=== PATIENT | male | born 1995 | race Asian ===

== ENCOUNTER 2017-01-23 04:05 | Emergency (ER) | payer OTHER ==
[~2017-01-23] VITALS: Ht 182.9 cm; Wt 94.0 kg
[~2017-01-23 04:05] MED LIST: 00186-0370-20 IH; AMOXICILLIN 50500 MG PO; AMOXICILLIN 8751 TAB PO; CIPRO 500MG TA500 MG PO; DEXILANT30 MG PO; FLEXERIL 1010 MG/TAB PO; LEVAQUIN 5500 MG/TA1 PO; MEDROL 4MG DOSPA4 MG PO; NORCO 325 MG-51 TAB PO; PEPCID 20MG TAB20 MG PO; PERCOCET 325 MG1 TA2 PO; PREDNISONE20 MG PO; PRIL40 PO; PROMETHAZINE12.5 M5 PO; REGLAN 10MG10 MG/TAB PO; ROXICODONE 55 MG/TAB PO; TUSS PO; VENTOLIN0.09 MG IH; VOLTAREN 75 DR75 MG PO; ZITHROMAX Z PA250 MG PO; ZOFRAN ODT4 MG PO; [UNRECOGNIZED DRUG - OTHER] PO
[2017-01-23 04:08] VITALS: TEMP 98.7
[2017-01-23] MEDS ORDERED: NAPROXEN 3375 MG/TAB PO (04:54)
[2017-01-23 05:18] VITALS: BP 100/55; PULSE 74
== END 2017-01-23 05:22 | disposition home or self-care (01) ==
LOC: COL.ER 04:05
DX: R07.9 Chest pain, unspecified (principal); R09.1 Pleurisy

== ENCOUNTER 2017-01-29 04:07 | Emergency (ER) | payer OTHER ==
[~2017-01-29] VITALS: Ht 182.9 cm; Wt 90.9 kg
[~2017-01-29 04:07] MED LIST changes: +NAPROXEN 3375 MG/TAB PO
[2017-01-29 04:11] VITALS: BP 112/77; TEMP 98.3
[2017-01-29] MEDS ORDERED: MOBIC 7.5MG7.5 MG PO (04:34)
[2017-01-29] MEDS ORDERED: FLEXERIL 1010 MG/TAB PO (04:34)
[2017-01-29 05:10] VITALS: PULSE 73
== END 2017-01-29 05:12 | disposition home or self-care (01) ==
LOC: COL.ER 04:07
DX: M54.5 Low back pain (principal)
CPT/HCPCS: J1885

== ENCOUNTER 2017-02-18 00:41 | Emergency (ER) | payer OTHER ==
[~2017-02-18] VITALS: Ht 182.9 cm; Wt 93.2 kg
[~2017-02-18 00:41] MED LIST changes: +MOBIC 7.5MG7.5 MG PO
[2017-02-18 00:43] VITALS: TEMP 99
[2017-02-18 01:20] LABS: BASO # 0.1 (0.0-0.2); BASO % 0.8 % (0.0-2.0); EOS # 0.3 (0.0-0.7); EOS % 3.3 % (0-4.0); GRAN # 2.5 (1.4-6.5); GRAN % 32.6 % (42.2-75.2); HEMATOCRIT 42.4 % (42.0-52.0); HEMOGLOBIN 14.2 g/dl (13.5-18.0); LYMPH # 4.2 (1.2-3.4); LYMPH % 54.4 % (20.0-51.0); MEAN CELL VOLUME 88 fl (80.0-100.0); MEAN CORPUSCULAR HEMOGLOBIN 30 pg (27.0-31.0); MEAN CORPUSCULAR HGB CONC 34 g/dl (33.0-37.0); MEAN PLATELET VOLUME 10.3 fl (7.4-10.4); MONO # 0.7 (0.1-0.6); MONO % 8.8 % (1.7-9.3); PLATELET COUNT 252 K/mm3 (130-400); REDCELL DISTRIBUTION WIDTH-CV 13.2 % (11.5-14.5); WHITE BLOOD COUNT 7.6 K/mm3 (4.8-10.8)
[2017-02-18 01:23] LABS: PH 5 (5-8); SQUAMOUS EPITHELIAL None Seen /hpf; URINE APPEARANCE Clear; URINE BACTERIA None Seen /hpf; URINE BILIRUBIN Negative (NEGATIVE); URINE BLOOD Negative (NEGATIVE); URINE COLOR Yellow; URINE GLUCOSE Negative (NEGATIVE); URINE KETONE Negative (NEGATIVE); URINE RBC 0-2 /hpf; URINE UROBILINOGEN Negative (NEGATIVE); URINE WBC 0-2 /hpf
[2017-02-18 01:29] LABS: ADJUSTED CALCIUM 9.2 mg/dL (8.4-10.2); ALBUMIN 4.8 gm/dL (3.5-5.0); BILIRUBIN,TOTAL 0.6 mg/dL (0.0-1.0); CALCIUM 9.8 mg/dL (8.4-10.2); CREATININE, serum 0.88 mg/dL (0.66-1.25); POTASSIUM 3.6 mmol/L (3.4-5.0)
[2017-02-18 03:30] VITALS: BP 101/80; PULSE 61
== END 2017-02-18 03:39 | disposition home or self-care (01) ==
LOC: COL.ER 00:41
PROVIDERS: Emergency Medicine
DX: R10.13 Epigastric pain (principal); R11.10 Vomiting, unspecified
CPT/HCPCS: J1200; J1885; J2550; J7030

== ENCOUNTER 2017-07-13 22:52 | Emergency (ER) | payer OTHER ==
[~2017-07-13] VITALS: Ht 182.9 cm; Wt 106.8 kg
[2017-07-13 23:03] VITALS: BP 127/70; TEMP 99.1
[2017-07-13] MEDS ORDERED: 00186-0372-20 IH (23:06)
[2017-07-13] MEDS ORDERED: PREDNISONE20 MG PO (23:41)
[2017-07-14 01:12] VITALS: PULSE 79
== END 2017-07-14 01:12 | disposition home or self-care (01) ==
LOC: COL.ER 22:52
DX: J45.901 Unspecified asthma with (acute) exacerbation (principal); J06.9 Acute upper respiratory infection, unspecified; R11.10 Vomiting, unspecified
CPT/HCPCS: J7512

== ENCOUNTER 2017-12-14 14:12 | Emergency (ER) | payer OTHER ==
[~2017-12-14] VITALS: Ht 180.3 cm; Wt 106.8 kg
[~2017-12-14 14:12] MED LIST changes: +00186-0372-20 IH; +ADVIL200 MG PO
[2017-12-14 14:24] VITALS: BP 115/56; TEMP 99
[2017-12-14] MEDS ORDERED: ZOFRAN ODT4 MG PO (18:45)
[2017-12-14 19:05] VITALS: PULSE 72
== END 2017-12-14 19:06 | disposition home or self-care (01) ==
LOC: COL.ER 14:12
DX: J11.1 Influenza due to unidentified influenza virus with other respiratory manifestations (principal); J45.909 Unspecified asthma, uncomplicated; F17.210 Nicotine dependence, cigarettes, uncomplicated

== ENCOUNTER 2017-12-15 23:40 | Emergency (ER) | payer OTHER ==
[~2017-12-15] VITALS: Ht 180.3 cm; Wt 109.1 kg
[2017-12-15 23:51] VITALS: BP 130/62; TEMP 99.2
[2017-12-16 01:37] LABS: BASO # 0.1 (0.0-0.2); BASO % 0.8 % (0.0-2.0); EOS # 0.2 (0.0-0.7); EOS % 2.5 % (0-4.0); GRAN % 50.6 % (42.2-75.2); HEMATOCRIT 45.7 % (42.0-52.0); LYMPH # 1.9 (1.2-3.4); LYMPH % 32.3 % (20.0-51.0); MEAN CELL VOLUME 89 fl (80.0-100.0); MEAN CORPUSCULAR HEMOGLOBIN 29 pg (27.0-31.0); MEAN CORPUSCULAR HGB CONC 33 g/dl (33.0-37.0); MEAN PLATELET VOLUME 10.4 fl (7.4-10.4); MONO # 0.8 (0.1-0.6); MONO % 13.5 % (1.7-9.3); PLATELET COUNT 229 K/mm3 (130-400); RED BLOOD COUNT 5.11 M/mm3 (4.20-5.60); REDCELL DISTRIBUTION WIDTH-CV 13.2 % (11.5-14.5)
[2017-12-16 01:47] LABS: ALBUMIN 4.8 gm/dL (3.5-5.0); BILIRUBIN,TOTAL 0.7 mg/dL (0.0-1.0); CALCIUM 9.9 mg/dL (8.4-10.2); CREATININE, serum 0.95 mg/dL (0.66-1.25); TOTAL PROTEIN 8.1 gm/dL (6.4-8.2)
[2017-12-16] MEDS ORDERED: PHENERGAN 25 TA25 MG PO (02:05)
[2017-12-16] MEDS ORDERED: PROTONIX 40MG T40 MG PO (02:05)
[2017-12-16] MEDS ORDERED: CARAFATE 1GM1 G PO (02:05)
[2017-12-16 04:53] VITALS: PULSE 80
== END 2017-12-16 04:53 | disposition home or self-care (01) ==
LOC: COL.ER 23:40
PROVIDERS: Emergency Medicine
DX: K29.70 Gastritis, unspecified, without bleeding (principal); K27.9 Peptic ulcer, site unspecified, unspecified as acute or chronic, without hemorrhage or perforation; J45.909 Unspecified asthma, uncomplicated; F17.210 Nicotine dependence, cigarettes, uncomplicated
CPT/HCPCS: C9113; J1200; J1885; J2550; J7030

== ENCOUNTER → 2018-01-14 | Outpatient (CLI) | payer OTHER ==
[~2018-01-14] MED LIST changes: +CARAFATE 1GM1 G PO; +PHENERGAN 25 TA25 MG PO; +PROTONIX 40MG T40 MG PO
== END ==
LOC: COL.RAD 07:22
DX: R10.13 Epigastric pain (principal); R11.0 Nausea
CPT/HCPCS: A9541

== ENCOUNTER 2018-05-09 04:57 | Emergency (ER) | payer OTHER ==
[~2018-05-09] VITALS: Ht 182.9 cm; Wt 100.0 kg
[2018-05-09 05:01] VITALS: TEMP 98.1
[2018-05-09 05:30] LABS: BASO # 0.1 (0.0-0.2); BASO % 0.6 % (0.0-2.0); EOS # 0.3 (0.0-0.7); EOS % 2.5 % (0-4.0); GRAN # 5.1 (1.4-6.5); GRAN % 50.9 % (42.2-75.2); HEMATOCRIT 40.6 % (42.0-52.0); HEMOGLOBIN 13.7 g/dl (13.5-18.0); LYMPH # 3.9 (1.2-3.4); MEAN CELL VOLUME 91 fl (80.0-100.0); MEAN CORPUSCULAR HEMOGLOBIN 31 pg (27.0-31.0); MEAN CORPUSCULAR HGB CONC 34 g/dl (33.0-37.0); MEAN PLATELET VOLUME 10.2 fl (7.4-10.4); MONO # 0.7 (0.1-0.6); MONO % 6.7 % (1.7-9.3); PLATELET COUNT 222 K/mm3 (130-400); RED BLOOD COUNT 4.44 M/mm3 (4.20-5.60)
[2018-05-09 05:42] LABS: ALANINE AMINOTRANSFERASE 41 U/L (21-72); ALBUMIN 4.1 gm/dL (3.5-5.0); ALKALINE PHOSPHATASE 107 U/L (50-136); ANION GAP 11 mmol/L (7-16); AST,SGOT 28 U/L (15-37); BILIRUBIN,TOTAL 0.4 mg/dL (0.0-1.0); BLOOD UREA NITROGEN 22 mg/dL (9-20); C-REACTIVE PROTEIN 0.7 mg/dL (0.0-0.9); CALCIUM 9.6 mg/dL (8.4-10.2); CARBON DIOXIDE 25 mmol/L (22-30); CHLORIDE 103 mmol/L (98-107); CREATININE, serum 1.14 mg/dL (0.66-1.25); GLUCOSE 118 mg/dL (74-106); LIPASE 109 U/L (23-300); POTASSIUM 3.4 mmol/L (3.4-5.0); SODIUM 140 mmol/L (137-145); TOTAL PROTEIN 7.7 gm/dL (6.4-8.2)
[2018-05-09 05:44] LABS: ALCOHOL(ethanol),MEDICAL < 10 mg/dL
[2018-05-09] MEDS ORDERED: PRIL40 PO (05:49)
[2018-05-09] MEDS ORDERED: NITROSTAT0.3 MG SL (05:49)
[2018-05-09] MEDS ORDERED: SUDAFED30 MG PO (05:50)
[2018-05-09] MEDS ORDERED: ASPIRIN 81M81 MG/TA2 PO (05:50)
[2018-05-09 05:51] LABS: TROPONIN-I < 0.012 ng/mL (0.000-0.034)
[2018-05-09] MEDS ORDERED: NITROSTAT0.4 MG/TAB SL (06:41)
[2018-05-09] MEDS ORDERED: PRILOTC (06:42)
[2018-05-09 06:49] VITALS: BP 103/65; PULSE 86
== END 2018-05-09 07:12 | disposition home or self-care (01) ==
LOC: COL.ER 04:57
PROVIDERS: Emergency Medicine
DX: R55 Syncope and collapse (principal); R11.2 Nausea with vomiting, unspecified; J45.909 Unspecified asthma, uncomplicated; K21.9 Gastro-esophageal reflux disease without esophagitis; F17.210 Nicotine dependence, cigarettes, uncomplicated; Z79.82 Long term (current) use of aspirin
CPT/HCPCS: C9113; J2405; J7030

== ENCOUNTER 2018-06-18 00:10 | Emergency (ER) | payer OTHER ==
[~2018-06-18] VITALS: Ht 182.9 cm; Wt 97.7 kg
[~2018-06-18 00:10] MED LIST changes: +ASPIRIN 81M81 MG/TA2 PO; +NITROSTAT0.3 MG SL; +NITROSTAT0.4 MG/TAB SL; +PRILOTC; +SUDAFED30 MG PO
[2018-06-18 00:13] VITALS: BP 109/66; TEMP 98.3
[2018-06-18] MEDS ORDERED: 00186-0372-20 IH (00:37)
[2018-06-18 01:30] VITALS: PULSE 94
== END 2018-06-18 01:30 | disposition home or self-care (01) ==
LOC: COL.ER 00:10
DX: S90.31XA Contusion of right foot, initial encounter (principal); J45.909 Unspecified asthma, uncomplicated; F17.210 Nicotine dependence, cigarettes, uncomplicated; W22.8XXA Striking against or struck by other objects, initial encounter; Y92.009 Unspecified place in unspecified non-institutional (private) residence as the place of occurrence of the external cause

== ENCOUNTER 2018-07-04 01:32 | Emergency (ER) | payer OTHER ==
[~2018-07-04] VITALS: Ht 182.9 cm; Wt 90.9 kg
[2018-07-04 01:35] VITALS: TEMP 99
[2018-07-04 02:11] LABS: BASO # 0.1 (0.0-0.2); BASO % 0.7 % (0.0-2.0); EOS # 0.2 (0.0-0.7); EOS % 2.7 % (0-4.0); GRAN % 59.1 % (42.2-75.2); HEMATOCRIT 41.1 % (42.0-52.0); HEMOGLOBIN 13.7 g/dl (13.5-18.0); LYMPH # 2.3 (1.2-3.4); LYMPH % 26.7 % (20.0-51.0); MEAN CELL VOLUME 90 fl (80.0-100.0); MEAN CORPUSCULAR HEMOGLOBIN 30 pg (27.0-31.0); MEAN CORPUSCULAR HGB CONC 33 g/dl (33.0-37.0); MEAN PLATELET VOLUME 10.4 fl (7.4-10.4); MONO # 0.9 (0.1-0.6); MONO % 10.7 % (1.7-9.3); PLATELET COUNT 237 K/mm3 (130-400); RED BLOOD COUNT 4.58 M/mm3 (4.20-5.60); REDCELL DISTRIBUTION WIDTH-CV 13.4 % (11.5-14.5)
[2018-07-04 02:20] LABS: COLLECTION METHOD CLEAN CATCH
[2018-07-04 02:22] LABS: ALANINE AMINOTRANSFERASE 35 U/L (21-72); ALBUMIN 4.4 gm/dL (3.5-5.0); ALKALINE PHOSPHATASE 94 U/L (50-136); ANION GAP 14 mmol/L (7-16); AST,SGOT 23 U/L (15-37); BILIRUBIN,TOTAL 0.5 mg/dL (0.0-1.0); BLOOD UREA NITROGEN 13 mg/dL (9-20); CALCIUM 9.4 mg/dL (8.4-10.2); CARBON DIOXIDE 19 mmol/L (22-30); CHLORIDE 107 mmol/L (98-107); CREATINE KINASE 84 U/L (55-170); CREATININE, serum 0.86 mg/dL (0.66-1.25); GLUCOSE 91 mg/dL (74-106); LIPASE 97 U/L (23-300); POTASSIUM 3.7 mmol/L (3.4-5.0); SODIUM 140 mmol/L (137-145); TOTAL PROTEIN 7.8 gm/dL (6.4-8.2)
[2018-07-04 02:33] LABS: TROPONIN-I < 0.012 ng/mL (0.000-0.034)
[2018-07-04 02:34] LABS: MUCOUS Present /lpf; SQUAMOUS EPITHELIAL None Seen /hpf; URINE BACTERIA None Seen /hpf; URINE RBC 0-2 /hpf
[2018-07-04 02:35] LABS: PH 6 (5-8); URINE APPEARANCE Clear; URINE BILIRUBIN Negative (NEGATIVE); URINE BLOOD Negative (NEGATIVE); URINE COLOR Yellow; URINE GLUCOSE Negative (NEGATIVE); URINE KETONE Negative (NEGATIVE); URINE LEUKOCYTE ESTERASE Negative (NEGATIVE); URINE NITRATE Negative (NEGATIVE); URINE PROTEIN(semi-quant) Negative (NEGATIVE); URINE UROBILINOGEN Negative (NEGATIVE)
[2018-07-04] MEDS ORDERED: PROTONIX 40MG T40 MG PO (04:06)
[2018-07-04] MEDS ORDERED: ZOFRAN ODT4 MG PO (04:06)
[2018-07-04] MEDS ORDERED: CARAFATE 1GM1 G PO (04:06)
[2018-07-04 04:55] VITALS: BP 112/57; PULSE 90
[2018-07-05] MEDS ORDERED: PROAIR HFA0.09 MG/AC IH (02:19)
[2018-07-05] MEDS ORDERED: TESSALON P100 MG/CAP PO (02:20)
== END 2018-07-04 04:55 | disposition home or self-care (01) ==
LOC: COL.ER 01:32
PROVIDERS: Emergency Medicine
DX: K27.9 Peptic ulcer, site unspecified, unspecified as acute or chronic, without hemorrhage or perforation (principal); J45.909 Unspecified asthma, uncomplicated; F17.210 Nicotine dependence, cigarettes, uncomplicated; F12.10 Cannabis abuse, uncomplicated
CPT/HCPCS: C9113; J2405; J7030

== ENCOUNTER 2018-07-04 22:28 | Emergency (ER) | payer OTHER ==
[~2018-07-04] VITALS: Ht 182.9 cm; Wt 90.9 kg
[2018-07-04 22:37] VITALS: BP 120/70; PULSE 101; TEMP 99.5
[2018-07-05] MEDS ORDERED: PROAIR HFA0.09 MG/AC IH (02:19)
[2018-07-05] MEDS ORDERED: TESSALON P100 MG/CAP PO (02:20)
== END 2018-07-05 03:35 | disposition home or self-care (01) ==
LOC: COL.ER 22:28
DX: J06.9 Acute upper respiratory infection, unspecified (principal); J45.909 Unspecified asthma, uncomplicated; R11.0 Nausea; I10 Essential (primary) hypertension; F17.210 Nicotine dependence, cigarettes, uncomplicated
CPT/HCPCS: A4614; J2550

== ENCOUNTER → 2018-07-14 | Outpatient (CLI) | payer OTHER ==
[~2018-07-14] MED LIST changes: +PROAIR HFA0.09 MG/AC IH; +TESSALON P100 MG/CAP PO
== END ==
LOC: COL.RAD 08:20
DX: K25.7 Chronic gastric ulcer without hemorrhage or perforation (principal); K82.8 Other specified diseases of gallbladder
CPT/HCPCS: A9537

== ENCOUNTER 2018-07-20 08:28 | Day surgery (SDC) | payer OTHER ==
[~2018-07-20] VITALS: Ht 182.9 cm; Wt 91.6 kg
[2018-07-20] VITALS (8 sets, daily range): BP systolic 102–118; BP diastolic 48–73; PULSE 66–91; TEMP 98.3
[2018-07-20] MEDS ORDERED: PAMELOR 25MG25 MG PO (08:48)
[2018-07-20] MEDS ORDERED: PRILOSEC 20MG20 MG PO (08:49)
[2018-07-20] MEDS ORDERED: TESSALON P100 MG/CAP PO (08:49)
[2018-07-20] MEDS ORDERED: CARAFATE 1GM1 G PO (08:51)
[2018-07-20] MEDS ORDERED: MOTRIN 600600 MG/TAB PO (11:32)
[2018-07-20] MEDS ORDERED: COLACE 100100 MG/CAP PO (11:32)
[2018-07-20] MEDS ORDERED: PERCOCET 325 MG1 TA2 PO (11:32)
[2018-07-20] MEDS ORDERED: ZOFRAN ODT4 MG PO (11:33)
== END 2018-07-20 17:11 | disposition home or self-care (01) ==
LOC: SDCO 08:28
DX: K81.1 Chronic cholecystitis (principal); J45.909 Unspecified asthma, uncomplicated; K25.7 Chronic gastric ulcer without hemorrhage or perforation; E78.00 Pure hypercholesterolemia, unspecified; K29.30 Chronic superficial gastritis without bleeding; Z87.891 Personal history of nicotine dependence; Z82.49 Family history of ischemic heart disease and other diseases of the circulatory system
CPT/HCPCS: J0690; J1100; J1885; J2405; J2704; J2710; J3010; J7120; Q9967

== ENCOUNTER 2018-07-25 18:27 | Emergency (ER) | payer OTHER ==
[~2018-07-25] VITALS: Ht 182.9 cm; Wt 90.5 kg
[~2018-07-25 18:27] MED LIST changes: +COLACE 100100 MG/CAP PO; +MOTRIN 600600 MG/TAB PO; +PAMELOR 25MG25 MG PO; +PRILOSEC 20MG20 MG PO
[2018-07-25 18:31] VITALS: TEMP 98.8
[2018-07-25 19:23] LABS: BASO # 0.1 (0.0-0.2); BASO % 0.6 % (0.0-2.0); EOS # 0.3 (0.0-0.7); EOS % 3.9 % (0-4.0); GRAN # 3.9 (1.4-6.5); GRAN % 49.7 % (42.2-75.2); HEMATOCRIT 44.7 % (42.0-52.0); HEMOGLOBIN 15.2 g/dl (13.5-18.0); LYMPH # 2.7 (1.2-3.4); LYMPH % 35.2 % (20.0-51.0); MEAN CELL VOLUME 88 fl (80.0-100.0); MEAN CORPUSCULAR HEMOGLOBIN 30 pg (27.0-31.0); MEAN CORPUSCULAR HGB CONC 34 g/dl (33.0-37.0); MONO # 0.8 (0.1-0.6); MONO % 10.5 % (1.7-9.3); PLATELET COUNT 249 K/mm3 (130-400); RED BLOOD COUNT 5.07 M/mm3 (4.20-5.60)
[2018-07-25 19:40] LABS: ALBUMIN 4.3 gm/dL (3.5-5.0); BILIRUBIN,TOTAL 0.5 mg/dL (0.0-1.0); CALCIUM 9.5 mg/dL (8.4-10.2); CREATININE, serum 0.83 mg/dL (0.66-1.25); PHOSPHOROUS 4.8 mg/dL (2.5-4.5); TOTAL PROTEIN 7.8 gm/dL (6.4-8.2)
[2018-07-25 20:58] LABS: COLLECTION METHOD CLEAN CATCH
[2018-07-25 21:03] LABS: MUCOUS Present /lpf; PH 6 (5-8); SQUAMOUS EPITHELIAL None Seen /hpf; URINE APPEARANCE Clear; URINE BACTERIA None Seen /hpf; URINE BILIRUBIN Negative (NEGATIVE); URINE BLOOD Negative (NEGATIVE); URINE COLOR Yellow; URINE GLUCOSE Negative (NEGATIVE); URINE KETONE Negative (NEGATIVE); URINE LEUKOCYTE ESTERASE Negative (NEGATIVE); URINE NITRATE Negative (NEGATIVE); URINE PROTEIN(semi-quant) Negative (NEGATIVE); URINE RBC 0-2 /hpf
[2018-07-25 21:14] VITALS: BP 121/69; PULSE 81
== END 2018-07-25 21:14 | disposition home or self-care (01) ==
LOC: COL.ER 18:27
PROVIDERS: Emergency Medicine
DX: K59.00 Constipation, unspecified (principal)
CPT/HCPCS: J1170; J2405; J7030

== ENCOUNTER 2018-11-20 03:35 | Emergency (ER) | payer OTHER ==
[~2018-11-20] VITALS: Ht 182.9 cm; Wt 90.9 kg
[2018-11-20 03:38] VITALS: TEMP 97.7
[2018-11-20 04:38] LABS: BASO # 0.1 (0.0-0.2); BASO % 0.6 % (0.0-2.0); EOS # 0.2 (0.0-0.7); EOS % 2.4 % (0-4.0); HEMATOCRIT 41.1 % (42.0-52.0); HEMOGLOBIN 13.6 g/dl (13.5-18.0); LYMPH # 4.2 (1.2-3.4); LYMPH % 51.2 % (20.0-51.0); MEAN CELL VOLUME 90 fl (80.0-100.0); MEAN CORPUSCULAR HEMOGLOBIN 30 pg (27.0-31.0); MEAN CORPUSCULAR HGB CONC 33 g/dl (33.0-37.0); MONO # 0.7 (0.1-0.6); MONO % 8.6 % (1.7-9.3); PLATELET COUNT 259 K/mm3 (130-400); RED BLOOD COUNT 4.57 M/mm3 (4.20-5.60); REDCELL DISTRIBUTION WIDTH-CV 13.5 % (11.5-14.5)
[2018-11-20 04:47] LABS: ALANINE AMINOTRANSFERASE 26 U/L (21-72); ALBUMIN 4.2 gm/dL (3.5-5.0); ALKALINE PHOSPHATASE 109 U/L (50-136); ANION GAP 9 mmol/L (7-16); AST,SGOT 22 U/L (15-37); BILIRUBIN,TOTAL 0.4 mg/dL (0.0-1.0); BLOOD UREA NITROGEN 13 mg/dL (9-20); CALCIUM 9.6 mg/dL (8.4-10.2); CARBON DIOXIDE 26 mmol/L (22-30); CHLORIDE 106 mmol/L (98-107); CREATININE, serum 0.83 mg/dL (0.66-1.25); GLUCOSE 98 mg/dL (74-106); SODIUM 141 mmol/L (137-145); TOTAL PROTEIN 7.3 gm/dL (6.4-8.2)
[2018-11-20 04:59] LABS: TROPONIN-I < 0.012 ng/mL (0.000-0.034)
[2018-11-20] MEDS ORDERED: FLEXERIL 1010 MG/TAB PO (05:57)
[2018-11-20 06:12] VITALS: BP 102/66; PULSE 68
== END 2018-11-20 06:14 | disposition home or self-care (01) ==
LOC: COL.ER 03:35
PROVIDERS: Emergency Medicine
DX: R07.81 Pleurodynia (principal); J45.909 Unspecified asthma, uncomplicated; E78.5 Hyperlipidemia, unspecified; F32.9 Major depressive disorder, single episode, unspecified; F17.290 Nicotine dependence, other tobacco product, uncomplicated; Z90.49 Acquired absence of other specified parts of digestive tract
CPT/HCPCS: J1885

== ENCOUNTER 2019-01-02 18:27 | Emergency (ER) | payer OTHER | END 2019-01-02 20:41 | disposition home or self-care (01) | LOC: COL.ER 18:27 | DX: S23.3XXA Sprain of ligaments of thoracic spine, initial encounter (principal); Z79.891 Long term (current) use of opiate analgesic; W00.0XXA Fall on same level due to ice and snow, initial encounter ==

== ENCOUNTER 2019-01-24 01:48 | Emergency (ER) | payer OTHER ==
[~2019-01-24] VITALS: Ht 182.9 cm; Wt 100.0 kg
[~2019-01-24 01:48] MED LIST changes: +ULTRAM 50MG TAB50 MG PO
[2019-01-24 01:53] VITALS: TEMP 98.1
[2019-01-24 02:20] LABS: BASO # 0.1 (0.0-0.2); BASO % 0.6 % (0.0-2.0); EOS # 0.2 (0.0-0.7); EOS % 2.3 % (0-4.0); GRAN # 4.3 (1.4-6.5); GRAN % 50.2 % (42.2-75.2); HEMATOCRIT 40.8 % (42.0-52.0); HEMOGLOBIN 13.4 g/dl (13.5-18.0); LYMPH # 3.2 (1.2-3.4); LYMPH % 37.4 % (20.0-51.0); MEAN CELL VOLUME 91 fl (80.0-100.0); MEAN CORPUSCULAR HEMOGLOBIN 30 pg (27.0-31.0); MEAN CORPUSCULAR HGB CONC 33 g/dl (33.0-37.0); MEAN PLATELET VOLUME 10.1 fl (7.4-10.4); MONO # 0.8 (0.1-0.6); MONO % 9.3 % (1.7-9.3); PLATELET COUNT 240 K/mm3 (130-400); RED BLOOD COUNT 4.47 M/mm3 (4.20-5.60); REDCELL DISTRIBUTION WIDTH-CV 13.2 % (11.5-14.5)
[2019-01-24 02:30] LABS: BILIRUBIN,TOTAL 0.3 mg/dL (0.0-1.0); CALCIUM 9.3 mg/dL (8.4-10.2); CREATININE, serum 0.8 mg/dL (0.66-1.25); POTASSIUM 3.5 mmol/L (3.4-5.0); TOTAL PROTEIN 7.3 gm/dL (6.4-8.2)
[2019-01-24] MEDS ORDERED: ZOFRAN ODT4 MG PO (02:43)
[2019-01-24 03:07] VITALS: BP 101/71; PULSE 74
== END 2019-01-24 03:07 | disposition home or self-care (01) ==
LOC: COL.ER 01:48
PROVIDERS: Emergency Medicine
DX: K29.70 Gastritis, unspecified, without bleeding (principal); K22.6 Gastro-esophageal laceration-hemorrhage syndrome; F17.210 Nicotine dependence, cigarettes, uncomplicated; Z90.49 Acquired absence of other specified parts of digestive tract; Z79.51 Long term (current) use of inhaled steroids

== ENCOUNTER 2019-02-04 20:40 | Emergency (ER) | payer OTHER ==
[~2019-02-04] VITALS: Ht 182.9 cm; Wt 95.0 kg
[2019-02-04 22:20] LABS: BASO # 0.1 (0.0-0.2); BASO % 0.7 % (0.0-2.0); EOS # 0.1 (0.0-0.7); EOS % 1.7 % (0-4.0); GRAN % 39.2 % (42.2-75.2); HEMATOCRIT 43.5 % (42.0-52.0); HEMOGLOBIN 14.4 g/dl (13.5-18.0); LYMPH # 3.7 (1.2-3.4); LYMPH % 49.1 % (20.0-51.0); MEAN CELL VOLUME 91 fl (80.0-100.0); MEAN CORPUSCULAR HEMOGLOBIN 30 pg (27.0-31.0); MEAN CORPUSCULAR HGB CONC 33 g/dl (33.0-37.0); MEAN PLATELET VOLUME 10.5 fl (7.4-10.4); MONO # 0.7 (0.1-0.6); MONO % 9.2 % (1.7-9.3); PLATELET COUNT 251 K/mm3 (130-400); RED BLOOD COUNT 4.78 M/mm3 (4.20-5.60); REDCELL DISTRIBUTION WIDTH-CV 13.2 % (11.5-14.5)
[2019-02-04 22:35] LABS: ALBUMIN 4.3 gm/dL (3.5-5.0); BILIRUBIN,TOTAL 0.3 mg/dL (0.0-1.0); CALCIUM 9.6 mg/dL (8.4-10.2); CREATININE, serum 0.88 (0.66-1.25); POTASSIUM 3.5 mmol/L (3.4-5.0)
[2019-02-04 22:38] LABS: C-REACTIVE PROTEIN 0.5 mg/dL (0.0-0.9)
[2019-02-04 23:07] LABS: COLLECTION METHOD CLEAN CATCH
[2019-02-04 23:16] LABS: PH 7 (5-8); SQUAMOUS EPITHELIAL None Seen /hpf; URINE APPEARANCE Clear; URINE BACTERIA None Seen /hpf; URINE BILIRUBIN Negative (NEGATIVE); URINE BLOOD Negative (NEGATIVE); URINE COLOR Yellow; URINE GLUCOSE Negative (NEGATIVE); URINE KETONE Trace (NEGATIVE); URINE LEUKOCYTE ESTERASE Negative (NEGATIVE); URINE NITRATE Negative (NEGATIVE); URINE PROTEIN(semi-quant) Negative (NEGATIVE); URINE RBC 0-2 /hpf; URINE UROBILINOGEN Negative (NEGATIVE)
[2019-02-05] MEDS ORDERED: CARAFATE 1GM1 G PO (01:03)
[2019-02-05] MEDS ORDERED: PROTONIX 40MG T40 MG PO (01:03)
[2019-02-05] MEDS ORDERED: PHENERGAN 25 TA25 MG PO (01:15)
[2019-02-05] MEDS ORDERED: ZOFRAN ODT4 MG PO (01:15)
[2019-02-05 01:25] VITALS: BP 96/73; PULSE 68; TEMP 97.8
== END 2019-02-05 01:39 | disposition home or self-care (01) ==
LOC: COL.ER 20:40
PROVIDERS: Physician Assistant
DX: K29.70 Gastritis, unspecified, without bleeding (principal); J45.909 Unspecified asthma, uncomplicated; E78.5 Hyperlipidemia, unspecified; F12.90 Cannabis use, unspecified, uncomplicated; Z90.49 Acquired absence of other specified parts of digestive tract
CPT/HCPCS: C9113; J2270; J2405; J7030

== ENCOUNTER 2019-02-10 00:45 | Emergency (ER) | payer OTHER ==
[2019-02-10 00:56] VITALS: BP 140/67; TEMP 98.8
[2019-02-10 01:37] LABS: BASO # 0.1 (0.0-0.2); BASO % 0.8 % (0.0-2.0); EOS # 0.2 (0.0-0.7); EOS % 2.5 % (0-4.0); GRAN # 2.6 (1.4-6.5); HEMATOCRIT 42.3 % (42.0-52.0); LYMPH # 2.7 (1.2-3.4); MEAN CELL VOLUME 90 fl (80.0-100.0); MEAN CORPUSCULAR HEMOGLOBIN 30 pg (27.0-31.0); MEAN CORPUSCULAR HGB CONC 33 g/dl (33.0-37.0); MEAN PLATELET VOLUME 10.5 fl (7.4-10.4); MONO # 0.5 (0.1-0.6); MONO % 8.5 % (1.7-9.3); PLATELET COUNT 252 K/mm3 (130-400); RED BLOOD COUNT 4.72 M/mm3 (4.20-5.60); REDCELL DISTRIBUTION WIDTH-CV 12.9 % (11.5-14.5)
[2019-02-10 01:51] LABS: ALANINE AMINOTRANSFERASE 38 U/L (21-72); ALBUMIN 4.1 gm/dL (3.5-5.0); ALKALINE PHOSPHATASE 107 U/L (50-136); ANION GAP 6 mmol/L (7-16); AST,SGOT 24 U/L (15-37); BILIRUBIN,TOTAL 0.5 mg/dL (0.0-1.0); BLOOD UREA NITROGEN 5 mg/dL (9-20); CALCIUM 9.7 mg/dL (8.4-10.2); CARBON DIOXIDE 26 mmol/L (22-30); CHLORIDE 109 mmol/L (98-107); CREATININE, serum 0.83 (0.66-1.25); GLUCOSE 100 mg/dL (74-106); POTASSIUM 3.4 mmol/L (3.4-5.0); SODIUM 142 mmol/L (137-145); TOTAL PROTEIN 7.3 gm/dL (6.4-8.2)
[2019-02-10 01:58] LABS: C-REACTIVE PROTEIN < 0.5 mg/dL (0.0-0.9)
[2019-02-10 01:59] LABS: ERYTHROCYTE SEDIMENTATION RATE 14 mm/hr (0-15)
[2019-02-10] MEDS ORDERED: PRIL40 PO (02:15)
[2019-02-10 04:40] VITALS: PULSE 72
== END 2019-02-10 04:40 | disposition home or self-care (01) ==
LOC: COL.ER 00:45
PROVIDERS: Physician Assistant
DX: R10.9 Unspecified abdominal pain (principal); J45.909 Unspecified asthma, uncomplicated; F17.210 Nicotine dependence, cigarettes, uncomplicated
CPT/HCPCS: J2550

== ENCOUNTER → 2019-02-22 | Outpatient (CLI) | payer OTHER | LOC: COL.RAD 07:19 | DX: R63.0 Anorexia (principal); R11.0 Nausea; R10.11 Right upper quadrant pain; R10.13 Epigastric pain; Z90.49 Acquired absence of other specified parts of digestive tract ==

== ENCOUNTER 2019-06-08 13:11 | Emergency (ER) | payer OTHER ==
[~2019-06-08] VITALS: Ht 182.9 cm; Wt 104.5 kg
[2019-06-08 13:13] VITALS: TEMP 98.3
[2019-06-08 13:30] LABS: BASO # 0.1 (0.0-0.2); BASO % 1.1 % (0.0-2.0); EOS # 0.2 (0.0-0.7); EOS % 2.2 % (0-4.0); GRAN # 3.9 (1.4-6.5); GRAN % 46.4 % (42.2-75.2); HEMATOCRIT 42.3 % (42.0-52.0); HEMOGLOBIN 13.9 g/dl (13.5-18.0); LYMPH # 3.2 (1.2-3.4); LYMPH % 38.7 % (20.0-51.0); MEAN CELL VOLUME 91 fl (80.0-100.0); MEAN CORPUSCULAR HEMOGLOBIN 30 pg (27.0-31.0); MEAN CORPUSCULAR HGB CONC 33 g/dl (33.0-37.0); MEAN PLATELET VOLUME 10.2 fl (7.4-10.4); MONO # 0.9 (0.1-0.6); PLATELET COUNT 250 K/mm3 (130-400); RED BLOOD COUNT 4.66 M/mm3 (4.20-5.60); REDCELL DISTRIBUTION WIDTH-CV 13.9 % (11.5-14.5)
[2019-06-08 13:39] LABS: ALBUMIN 4.4 gm/dL (3.5-5.0); BILIRUBIN,TOTAL 0.3 mg/dL (0.0-1.0); CALCIUM 9.1 mg/dL (8.4-10.2); CREATININE, serum 1.22 (0.66-1.25); POTASSIUM 4.1 mmol/L (3.4-5.0); TOTAL PROTEIN 7.6 gm/dL (6.4-8.2)
[2019-06-08 15:17] LABS: COLLECTION METHOD CLEAN CATCH
[2019-06-08 15:30] LABS: PH 7 (5-8); SQUAMOUS EPITHELIAL None Seen /hpf; URINE APPEARANCE Clear; URINE BACTERIA None Seen /hpf; URINE BILIRUBIN Negative (NEGATIVE); URINE BLOOD Negative (NEGATIVE); URINE COLOR Yellow; URINE GLUCOSE Negative (NEGATIVE); URINE KETONE Negative (NEGATIVE); URINE LEUKOCYTE ESTERASE Negative (NEGATIVE); URINE NITRATE Negative (NEGATIVE); URINE PROTEIN(semi-quant) Negative (NEGATIVE); URINE RBC 0-2 /hpf; URINE UROBILINOGEN Negative (NEGATIVE)
[2019-06-08 16:18] VITALS: BP 113/65; PULSE 99
== END 2019-06-08 18:00 | disposition short-term general hospital (02) ==
LOC: COL.ER 13:11
PROVIDERS: Emergency Medicine
DX: S42.291A Other displaced fracture of upper end of right humerus, initial encounter for closed fracture (principal); S01.81XA Laceration without foreign body of other part of head, initial encounter; V23.4XXA Motorcycle driver injured in collision with car, pick-up truck or van in traffic accident, initial encounter
CPT/HCPCS: J1170; J3010; Q9967

== ENCOUNTER 2019-08-09 19:34 | Emergency (ER) | payer OTHER ==
[~2019-08-09] VITALS: Ht 182.9 cm; Wt 100.0 kg
[2019-08-09 19:42] VITALS: TEMP 98.3
[2019-08-09 20:24] LABS: BASO # 0.1 (0.0-0.2); BASO % 0.6 % (0.0-2.0); EOS # 0.1 (0.0-0.7); EOS % 1.7 % (0-4.0); GRAN # 4.3 (1.4-6.5); GRAN % 54.6 % (42.2-75.2); HEMATOCRIT 39.8 % (42.0-52.0); HEMOGLOBIN 13.1 g/dl (13.5-18.0); LYMPH # 2.7 (1.2-3.4); LYMPH % 34.7 % (20.0-51.0); MEAN CELL VOLUME 89 fl (80.0-100.0); MEAN CORPUSCULAR HEMOGLOBIN 29 pg (27.0-31.0); MEAN CORPUSCULAR HGB CONC 33 g/dl (33.0-37.0); MEAN PLATELET VOLUME 10.3 fl (7.4-10.4); MONO # 0.6 (0.1-0.6); MONO % 8.1 % (1.7-9.3); PLATELET COUNT 249 K/mm3 (130-400); RED BLOOD COUNT 4.46 M/mm3 (4.20-5.60); REDCELL DISTRIBUTION WIDTH-CV 13.1 % (11.5-14.5)
[2019-08-09 20:34] LABS: CALCIUM 8.9 mg/dL (8.4-10.2); CREATININE, serum 0.95 (0.66-1.25); POTASSIUM 3.6 mmol/L (3.4-5.0)
[2019-08-09] MEDS ORDERED: PHENERGAN 25 TA25 MG PO (21:39)
[2019-08-09 21:51] VITALS: BP 116/72; PULSE 75
== END 2019-08-09 21:53 | disposition home or self-care (01) ==
LOC: COL.ER 19:34
PROVIDERS: Physician Assistant
DX: R51 Headache (principal); J45.909 Unspecified asthma, uncomplicated
CPT/HCPCS: J1200; J1885; J2550; J7030

== ENCOUNTER 2019-08-30 14:16 | Emergency (ER) | payer OTHER ==
[~2019-08-30] VITALS: Ht 182.9 cm; Wt 104.2 kg
[2019-08-30 14:23] VITALS: BP 102/56; TEMP 97.5
[2019-08-30] MEDS ORDERED: FIORICET 325 MG1 TA1 PO (16:38)
[2019-08-30 17:27] VITALS: PULSE 16
[2019-08-30] MEDS ORDERED: ZOFRAN ODT4 MG PO (23:45)
== END 2019-08-30 17:30 | disposition home or self-care (01) ==
LOC: COL.ER 14:16
DX: R51 Headache (principal); F17.210 Nicotine dependence, cigarettes, uncomplicated; Z90.89 Acquired absence of other organs
CPT/HCPCS: J1885

== ENCOUNTER 2019-08-30 21:52 | Emergency (ER) | payer OTHER ==
[~2019-08-30] VITALS: Ht 182.9 cm; Wt 104.1 kg
[~2019-08-30 21:52] MED LIST changes: +FIORICET 325 MG1 TA1 PO
[2019-08-30 22:02] VITALS: TEMP 97.1
[2019-08-30 22:39] LABS: BASO # 0.1 (0.0-0.2); BASO % 0.9 % (0.0-2.0); EOS # 0.1 (0.0-0.7); EOS % 2.1 % (0-4.0); GRAN # 2.7 (1.4-6.5); GRAN % 46.6 % (42.2-75.2); HEMOGLOBIN 14.8 g/dl (13.5-18.0); LYMPH # 2.3 (1.2-3.4); LYMPH % 39.7 % (20.0-51.0); MEAN CELL VOLUME 89 fl (80.0-100.0); MEAN CORPUSCULAR HEMOGLOBIN 29 pg (27.0-31.0); MEAN CORPUSCULAR HGB CONC 33 g/dl (33.0-37.0); MEAN PLATELET VOLUME 10.1 fl (7.4-10.4); MONO # 0.6 (0.1-0.6); MONO % 10.5 % (1.7-9.3); PLATELET COUNT 253 K/mm3 (130-400); RED BLOOD COUNT 5.08 M/mm3 (4.20-5.60); REDCELL DISTRIBUTION WIDTH-CV 13.1 % (11.5-14.5)
[2019-08-30 22:51] LABS: ALANINE AMINOTRANSFERASE 59 U/L (21-72); ALBUMIN 4.6 gm/dL (3.5-5.0); ALKALINE PHOSPHATASE 101 U/L (50-136); ANION GAP 9 mmol/L (7-16); AST,SGOT 42 U/L (15-37); BILIRUBIN,TOTAL 0.3 mg/dL (0.0-1.0); BLOOD UREA NITROGEN 18 mg/dL (9-20); CALCIUM 9.8 mg/dL (8.4-10.2); CARBON DIOXIDE 28 mmol/L (22-30); CHLORIDE 103 mmol/L (98-107); CREATININE, serum 1.04 (0.66-1.25); GLUCOSE 102 mg/dL (74-106); POTASSIUM 3.7 mmol/L (3.4-5.0); SODIUM 140 mmol/L (137-145); TOTAL PROTEIN 8.3 gm/dL (6.4-8.2)
[2019-08-30 22:53] LABS: C-REACTIVE PROTEIN < 0.5 mg/dL (0.0-0.9)
[2019-08-30] MEDS ORDERED: ZOFRAN ODT4 MG PO (23:45)
[2019-08-31 00:47] VITALS: BP 99/72; PULSE 64
== END 2019-08-31 00:41 | disposition home or self-care (01) ==
LOC: COL.ER 21:52
PROVIDERS: Family Medicine
DX: R51 Headache (principal)
CPT/HCPCS: C9113; J1100; J1200; J2550; J3010; J7030

== ENCOUNTER 2019-10-12 17:25 | Emergency (ER) | payer OTHER ==
[~2019-10-12] VITALS: Ht 182.9 cm; Wt 100.0 kg
[2019-10-12 20:11] LABS: BASO # 0.1 (0.0-0.2); BASO % 0.8 % (0.0-2.0); EOS # 0.1 (0.0-0.7); EOS % 2.1 % (0-4.0); GRAN % 63.3 % (42.2-75.2); HEMATOCRIT 46.6 % (42.0-52.0); HEMOGLOBIN 15.3 g/dl (13.5-18.0); LYMPH # 1.5 (1.2-3.4); LYMPH % 23.2 % (20.0-51.0); MEAN CELL VOLUME 88 fl (80.0-100.0); MEAN CORPUSCULAR HEMOGLOBIN 29 pg (27.0-31.0); MEAN CORPUSCULAR HGB CONC 33 g/dl (33.0-37.0); MONO # 0.7 (0.1-0.6); MONO % 10.4 % (1.7-9.3); PLATELET COUNT 269 K/mm3 (130-400); RED BLOOD COUNT 5.28 M/mm3 (4.20-5.60); REDCELL DISTRIBUTION WIDTH-CV 14.1 % (11.5-14.5)
[2019-10-12 20:23] LABS: STREP SCREEN NEGATIVE
[2019-10-12 20:44] LABS: ALBUMIN 4.9 gm/dL (3.5-5.0); BILIRUBIN,TOTAL 0.5 mg/dL (0.0-1.0); CALCIUM 9.9 mg/dL (8.4-10.2); CREATININE, serum 1.06 (0.66-1.25); TOTAL PROTEIN 8.7 gm/dL (6.4-8.2)
[2019-10-12 21:26] VITALS: BP 122/72; PULSE 82; TEMP 97.1
== END 2019-10-12 21:40 | disposition home or self-care (01) ==
LOC: COL.ER 17:25
PROVIDERS: Nurse Practitioner
DX: J06.9 Acute upper respiratory infection, unspecified (principal); I10 Essential (primary) hypertension; J45.909 Unspecified asthma, uncomplicated; F17.210 Nicotine dependence, cigarettes, uncomplicated; Z90.49 Acquired absence of other specified parts of digestive tract
CPT/HCPCS: J1885; J2405; J7030

== ENCOUNTER 2019-10-14 02:40 | Emergency (ER) | payer OTHER ==
[~2019-10-14] VITALS: Ht 182.9 cm; Wt 100.0 kg
[2019-10-14 04:32] VITALS: BP 102/68; PULSE 74; TEMP 98.4
== END 2019-10-14 04:32 | disposition home or self-care (01) ==
LOC: COL.ER 02:40
DX: B34.9 Viral infection, unspecified (principal); F17.210 Nicotine dependence, cigarettes, uncomplicated; Z90.89 Acquired absence of other organs
CPT/HCPCS: J1200; J1885; J2765; J3010; J7120

== ENCOUNTER 2020-04-21 00:41 | Emergency (ER) | payer OTHER ==
[~2020-04-21] VITALS: Ht 182.9 cm; Wt 107.7 kg
[2020-04-21 02:22] VITALS: BP 114/84; PULSE 74; TEMP 97.7
== END 2020-04-21 02:23 | disposition home or self-care (01) ==
LOC: COL.ER 00:41
DX: S70.02XA Contusion of left hip, initial encounter (principal); I10 Essential (primary) hypertension; J45.909 Unspecified asthma, uncomplicated; F17.210 Nicotine dependence, cigarettes, uncomplicated; V40.6XXA Car passenger injured in collision with pedestrian or animal in traffic accident, initial encounter